=== PATIENT | female | born 1990 | race African-American/Black ===

== ENCOUNTER 2016-09-05 16:59 | Emergency (ER) | payer OTHER ==
[~2016-09-05] VITALS: Ht 157.5 cm; Wt 90.7 kg
--- NOTE | 2016-09-05 17:05 | NUR ---
PT BIBA TO BED 3 AT THIS TIME.
[2016-09-05 17:07] VITALS: BP 159/97
--- NOTE | 2016-09-05 17:44 | NUR ---
25 YO FEMALE BIB EMS FROM FIELD FOR LEFT ARM PAIN, TO BED SHORTLY AFTER BEING SEN BY PATIENT ELOPED OUT BACK DOOR.
== END 2016-09-05 17:44 | disposition left against medical advice (07) ==
LOC: MED 16:59
DX: L02.414 Cutaneous abscess of left upper limb (principal)
CPT/HCPCS: 99283

== ENCOUNTER 2018-01-06 01:54 | Inpatient (IN) | payer MEDICAID, OTHER ==
[~2018-01-06] VITALS: Ht 162.6 cm; Wt 72.6 kg
[2018-01-06 01:54] VITALS: BP 106/62
--- NOTE | 2018-01-06 01:54 | NUR ---
PT CHALINO ALS. TAKEN TO BED 5
--- NOTE | 2018-01-06 01:55 | NUR ---
PT REMOVED ALL CLOTHES AND PLACED IN HOSPITAL GOWN. CLOTHES AND PERSONAL BELONGINGS HANDED OVER TO SECURITY FOR SAFEKEEPING. ALL BEDSIDE EQUIPMENT REMOVED AND SITTER PLACED IN ROOM FOR MONITORING.
--- NOTE | 2018-01-06 01:55 | NUR ---
Dr. Salvador evaluating patient at bedside.
--- NOTE | 2018-01-06 01:55 | NUR ---
27/ BIBA FOR 5150 HOLD PLACED BY [facility]. PER EMS PT WAS CAUSING PUBILC DISTURBANCE IN AN APARTMENT COMMUNITY AND STATES " SHE WILL KILL HERSELF AND EVERYONE IN THE APARTMENT COMPLEX". PT IS UNCOOPERATIVE. UNABLE TO OBTAIN MEDICAL HISTORY. BELONGINGS SENT TO SECURITY. SITTER AT BEDSIDE
--- NOTE | 2018-01-06 02:15 | NUR ---
PT EXTREMELY AGITATED, CURSING AND YELLING AT STAFF. PT PLACED ON 4PT RESTRAINTS PER MD ORDERS.
[2018-01-06] MEDS ORDERED: diphenhydrAMINE 50 MG/ML VIAL IM ONE (02:20)
[2018-01-06] MEDS ORDERED: HALOPERIDOL IM 5 MG/ML VIAL IM ONE (02:20)
[2018-01-06] MEDS ORDERED: LORazepam 2 MG/ML VIAL IM ONE (02:20)
[2018-01-06] MEDS ORDERED: diphenhydrAMINE 50 MG/ML VIAL ONE (02:23)
[2018-01-06] MEDS ORDERED: HALOPERIDOL IM 5 MG/ML VIAL ONE (02:23)
[2018-01-06] MEDS ORDERED: LORazepam 2 MG/ML VIAL ONE (02:24)
--- NOTE | 2018-01-06 02:43 | NUR ---
# 14 FR Urinary catheter inserted utilizing sterile technique. Immediate return of 15CC ml YELLOW urine noted. Urine sample collected and sent to lab.
[2018-01-06 02:44] LABS: ALBUMIN 4.2 g/dL (3.4-5.0); ASPARTATE AMINOTRANSFERASE 33 U/L (15-37); CHLORIDE 106 mmol/L (98-107); CREATININE 1.3 mg/dL (0.6-1.3); GFR ARICAN-AMERICAN 63 mL/min (>90); GLUCOSE 84 mg/dL (74-106); SODIUM SERUM 144 mmol/L (136-145); TOTAL BILIRUBIN 0.4 mg/dL (0.0-1.0)
[2018-01-06 02:45] LABS: ACETAMINOPHEN < 0.5 ug/ml (10-30); SALICYLATE < 2.8 mg/dL (2.8-20.0)
--- NOTE | 2018-01-06 02:46 | NUR ---
DURING STRAIGHT CATH, PLASTIC BAG WAS PULLED OUT VAGINAL AREA, PLASTIC BAG APPEARS TO HAVE DIRT AND STOOLS NOTED.
--- NOTE | 2018-01-06 02:50 | NUR ---
PT ASLEEP. RESTRAINTS DC. SKIN IS INTACT, WNL
[2018-01-06 02:51] LABS: APPEARANCE,URINE CLEAR (CLEAR); BILIRUBIN,URINE NEGATIVE (NEGATIVE); BLOOD, URINE NEGATIVE (NEGATIVE); COLOR,URINE YELLOW (YELLOW); LEUKOCYTE ESTERASE ,URINE NEGATIVE (NEGATIVE); NITRITE, URINE NEGATIVE (NEGATIVE); UGLUCOSE NEGATIVE (NEGATIVE)
[2018-01-06 02:57] LABS: UREA NITROGEN, BLOOD 10 mg/dL (7-18)
[2018-01-06 03:01] LABS: RBC,URINE 0-5 (RARE) /HPF (0-5)
[2018-01-06 03:03] LABS: BARBITURATE, URINE NEG. ng/ml (NEG <=200); BENZODIAZEPINE, URINE NEG. ng/mL (NEG <=200); CANNABINOID, URINE NEG. ng/mL (NEG <=50); COCAINE, URINE NEG. ng/mL (NEG <=300); OPIATE, URINE NEG. ng/mL (NEG <=2000); PHENCYCLIDINE SCREEN,URINE NEG. ng/mL (NEG <=25)
--- NOTE | 2018-01-06 03:13 | NUR ---
PT TAKEN TO CT
--- NOTE | 2018-01-06 03:29 | NUR ---
PT RETURN FROM CT
--- NOTE | 2018-01-06 03:30 | NUR ---
Patient appears to be resting comfortably in bed.Respirations even and unlabored.
[2018-01-06 03:50] LABS: BASOPHILS % (AUTO) 0.6 % (0.0-2.0); EOSINOPHILS # (AUTO) 0.2 K/uL (0-0.4); EOSINOPHILS % (AUTO) 2.4 % (0.0-4.0); HEMATOCRIT 39.9 % (36-48); HEMOGLOBIN 12.8 g/dL (12.0-16.0); LYMPHOCYTES # (AUTO) 2.7 K/uL (2.5-16.5); MEAN CORPUSCULAR HEMOGLOBIN 26 pg (27-31); MEAN CORPUSCULAR HGB CONC 32 g/dL (33-37); MEAN CORPUSCULAR VOLUME 80.5 fL (80-94); MONOCYTES # (AUTO) 0.8 K/uL (0.8-1.0); MONOCYTES % (AUTO) 9.2 % (1.7-9.3); NEUTROPHILS % (AUTO) 56.8 % (42.2-75.2); PLATELET COUNT (AUTO) 245 K/uL (140-450); RED BLOOD CELL COUNT(AUTO) 4.95 MIL/uL (4.20-5.40); RED CELL DISTRIBUTION WIDTH 13.5 % (11.6-13.7)
[2018-01-06 03:51] LABS: WHITE BLOOD COUNT (AUTO) 8.8 K/uL (4.8-10.8)
--- NOTE | 2018-01-06 04:46 | NUR ---
Called following facilities: [facility], spoke with Robert, no beds available at [facility], [facility], [facility]. ([phone]) [facility] and spoke with Nirmala. Nirmala states that they have 19 patients on the waiting list pending and have no bed available. ([phone]) [facility] and spoke with Timothy. Timothy asked me to fax patient packet. Packet was faxed to [phone], Timothy is to call either [facility] or [facility] if they do have a bed available. ([phone]) [facility] spoke with Duncan, no beds available. ([phone]) [facility] and spoke with Isha, no beds available. ([phone])
--- NOTE | 2018-01-06 05:10 | NUR ---
Patient appears to be resting comfortably in bed.Respirations even and unlabored.
[2018-01-06] MEDS ORDERED: ACETAMINOPHEN 325 MG TAB PO PRN (05:25)
[2018-01-06] MEDS ORDERED: ONDANSETRON 4 MG/2 ML VIAL IVP PRN (05:25)
--- NOTE | 2018-01-06 05:48 | NUR ---
Patient will be admitted to care of [facility]. Admited to MS. Will go to room 110B. Belongings list completed. Report to OSCAR DELGADILLO.
--- NOTE | 2018-01-06 05:58 | NUR ---
RECEIVED PT FROM ER VIA [facility]. PT SLEEPING. DX: 5150 HOLD SUICIDAL IDEATION. 1:1 SITTER . NO S/S OF RESP DISTRESS. ON ROOM AIR. NO S/S OF PAIN. SAFETY PRECAUTION IN PLACE.
[2018-01-06 06:00] VITALS: BP 94/55
--- NOTE | 2018-01-06 07:15 | NUR ---
ENDORSED PT TO DAY SHIFT NURSE. PT IN STABLE CONDITION.
--- NOTE | 2018-01-06 07:20 | NUR ---
RECEIVED PT FROM CONTRACTS MANAGER RN. PT IN BED, HARD TO WAKE UP, DROWSY, OX1. NOT ANSWERING ANY QUESTIONS. NO SOB NOTED, BREATHING EVEN AND UNLABORED. NO C/O PAIN. NO EDEMA NOTED. SKIN INTACT. VITALS TAKEN, WITHIN NORMAL LIMIT. 1:1 SITTER. BED IN LOWEST POSITION, BRAKE ON, SIDE RAILS UP, CALL LIGHT WITHIN REACH, WILL CONTINUE TO MONITOR AND DO ADMISSION PAPERWORK WHEN PT IS MORE AWAKE.
[2018-01-06 08:00] VITALS: BP 111/75
[2018-01-06] MEDS: NACL 0.9% 1,000 ML IV SCH (08:00)
[2018-01-06] MEDS: OLANZapine 2.5 MG TAB PO SCH ×2 (08:49→21:00)
--- NOTE | 2018-01-06 09:36 | NUR ---
PATIENT HAS BEEN SCREENED AND CATEGORIZED LOW NUTRITION RISK. PATIENT WILL BE SEEN WITHIN 7 DAYS OF ADMISSION. 01/12/[address] Addendum: 01/08/18 at [address] PATIENT HAS BEEN RESCREENED AND RECATEGORIZED MODERATE NUTRITION RISK D/T EDINSON SCORE OF 17. PATIENT WILL BE SEEN AND ASSESSED WITHIN 3-5 DAYS OF ADMISSION 01/08/18 - 01/10/[address]
--- NOTE | 2018-01-06 09:36 | NUR ---
PT REFUSED IV INSERT AT THIS TIME. WILL TRY LATER.
[2018-01-06 10:09] LABS: PROTHROMBIN TIME 10.9 secs (10.8-13.4)
[2018-01-06 10:11] LABS: MAGNESIUM 2.2 mg/dL (1.8-2.4); PHOSPHORUS 3.4 mg/dL (2.5-4.9)
[2018-01-06 10:14] LABS: THYROID STIMULATING HORMONE 1.76 uIU/mL (0.34-3.74)
--- NOTE | 2018-01-06 10:43 | NUR ---
[facility] aware patient is still in unit. will continue to look for placement throughout shift. will update unit when new information has been received.
--- NOTE | 2018-01-06 11:20 | NUR ---
PT WAS CLEANED. WOKE UP PT TO EAT, PT ATE WELL. PT REFUSED IV INSERT. RISK AND BENEFIT EXPLAINED. STILL REFUSING. Addendum: 01/06/18 at 1218 by [facility] RN LINENS CHANGED, GOWN AND SOCKS CHANGED.
--- NOTE | 2018-01-06 13:10 | NUR ---
HELPED SEMIAUTOMATIC TAPER OPERATOR TO SIT PT UP IN BED FOR CHEST X RAY. PT IS STILL DROWSY.
[2018-01-06 13:39] LABS: FREE T4 (FREE THYROXINE) 1.28 ng/dL (0.76-1.46)
[2018-01-06 14:30] LABS: CHOL/HDL RATIO 2.1 (1-4.5)
--- NOTE | 2018-01-06 15:05 | NUR ---
WOKE PT UP FOR LUNCH. PT ATE WELL. WENT BACK TO SLEEP RIGHT AFTER. NO S/S OF RESPIRATORY DISTRESS. PT MUMBLING TO QUESTIONS REGARDING MEDICAL HX.
[2018-01-06 16:01] VITALS: BP 95/59
--- NOTE | 2018-01-06 18:15 | NUR ---
No update from contacted facilities at this time. no bed placement in surrounding LPS designated facilities at this time. will endorse to mold shifter to continue looking for placement.
--- NOTE | 2018-01-06 19:22 | NUR ---
ENDORSED PT TO LANGUAGE ARTS TEACHER NURSE NURSE. PT IS IN STABLE CONDITION. 1:1 SITTER.
--- NOTE | 2018-01-06 19:23 | NUR ---
RECD. RESTING IN BED SLEEPING, VERY DROWSY. WAKEN UP BUT JUST MOVE BODY IN RESPONSE. RESPIRATION EVEN AND UNLABORED. NO IV LINE. INTRODUCED SELF AND PLAN OF CARE GIVEN BUT JUST KEEP ON SLEEPING. SAFETY MEASURES ENFORCED. WILL CONTINUED TO MONITOR BEHAVIOR AND ENSURE SAFETY. NO APPEARANCE OF PAIN NOTED 0/10.
[2018-01-06] MEDS ORDERED: LORazepam 1 MG TAB PO PRN (21:05)
--- NOTE | 2018-01-06 21:15 | NUR ---
WAKEN UP TO TAKE ZYPREXA BUT SHAKES HER BUTTOCKS AND CONTINUED SLEEPING ON HER ABDOMEN. STILL DROWSY.
--- NOTE | 2018-01-06 22:05 | NUR ---
DR. SINGH CAME TO ASSESS PATIENT. DID NOT WAKE UP JUST CHANGED POSITION IN BED, STILL DROWSY. WILL COMEBACK WHEN PATIENT IS READY TO COMMUNICATE, STILL ON 5150 HOLD.
[2018-01-07] VITALS: BP 105/63
--- NOTE | 2018-01-07 | NUR ---
STILL SLEEPING COMFORTABLY IN BED.
[2018-01-07] MEDS: NACL 0.9% 1,000 ML IV SCH ×2 (00:40→17:20)
--- NOTE | 2018-01-07 04:00 | NUR ---
CHANGES POSITION IN BED, CONTINUED SLEEPING.
--- NOTE | 2018-01-07 06:00 | NUR ---
WET THE BED BUT REFUSED TO BE MOVED TO CHANGE BEDDINGS.
--- NOTE | 2018-01-07 06:40 | NUR ---
STILL SLEEPING IN BED. VERY DROWSY, UNCOOPERATIVE. CONDITION REMAIN STABLE. SAFETY MAINTAINED. WILL ENDORSE TO AM NURSE FOR CONTINUITY OF CARE.
--- NOTE | 2018-01-07 07:05 | NUR ---
ENDORSED TO AM NURSE FOR CONTINUITY OF CARE.
--- NOTE | 2018-01-07 07:30 | NUR ---
RECEIVED PT FROM FORM DESIGNER NURSE. PT SLEEPING IN BED, HARD TO WAKE UP, STILL DROWSY, OX2 TO NAME AND PLACE. NO SOB NOTED, BREATHING EVEN AND UNLABORED. DENIES PAIN. DENIES SUICIDAL IDEATION, DENIES THOUGHTS OF HURTING OTHERS. ORIENTED PT TO THE ROOM. VITALS TAKEN, WITHIN NORMAL LIMIT. 1:1 SITTER. BED IN LOWEST POSITION, BRAKE ON, SIDE RAILS UP, WILL CONTINUE TO MONITOR.
[2018-01-07 08:00] VITALS: BP 95/53
[2018-01-07] MEDS: OLANZapine 2.5 MG TAB PO SCH ×2 (08:52→21:10)
--- NOTE | 2018-01-07 12:13 | NUR ---
No Bed availability at following facilities: [facility] s[facility]w [facility] s[facility]w [facility] s[facility]w Nivia Goodson s/w Nivia, faxed over packet for review.
--- NOTE | 2018-01-07 13:15 | NUR ---
PT ATE WELL. PT DENIES SUICIDE IDEATION. PT STATED SHE WANTS TO GO HOME. EXPLAINED TO HER THAT IF PSYCHOLOGIST CLEARS HER, SHE MAY BE DISCHARGED. MADE PT AWARE THAT THE PSYCHOLOGIST WILL COME AGAIN TONIGHT OR TOMORROW.
[2018-01-07 16:00] VITALS: BP 94/62
--- NOTE | 2018-01-07 17:20 | NUR ---
PT CRIED AND STATED SHE WANTS TO GO HOME. EXPLAINED TO HER THAT PSYCHOLOGIST HAS TO CLEAR HER. PSYCHOLOGIST CAME LAST NIGHT, HOWEVER, SHE WAS DROWSY TO BE EVALUATED. TOLD HER THAT THE PSYCHOLOGIST WILL BE BACK TONIGHT OR TOMORROW. ASKED PT IF SHE CAN TAKE THE ATIVAN (1MG PO) FOR HER ANXIETY, PT REFUSED. PT IS NOW QUIETLY SLEEPING IN HER BED AGAIN.
--- NOTE | 2018-01-07 19:13 | NUR ---
ENDORSED PT TO MILLER HEAD ASSISTANT WET PROCESS NURSE NURSE. PT IS IN STABLE CONDITION. 1:1 SITTER.
--- NOTE | 2018-01-07 19:15 | NUR ---
RECD. RESTING IN BED LYING ON HER ABDOMEN. EASILY WAKES UP WHEN TALKED TO BUT DOES EVEN TURNED TO LOOK AT NURSE, WHEN ASKED IF SHE HAS STILL THOUGHTS OF HURTING HERSELF, STATED NO. WHEN ASKED FURTHER QUESTIONS TO ASSESS LEVEL OF ORIENTATION, DID NOT ANSWER. SAFETY MEASURES ENFORCED. PLAN OF CARE FOR THE SHIFT DISCUSSED. DID NOT RESPOND IF SHE UNDERSTAND. NO APPEARANCE OF PAIN NOTED 0/10. WILL CONTINUE TO MONITOR BEHAVIOR AND ENSURE SAFETY DURING SHIFT.
--- NOTE | 2018-01-07 19:16 | NUR ---
Patient's Plan of Care was discussed and reviewed with KLEVER: SUZANNA
--- NOTE | 2018-01-07 21:00 | NUR ---
WHEN ASKED IF SHE WANTS TO TAKE HER MEDICATION STATED YES. INFORMED THAT PSYCHOLOGIST WILL BE REQUESTED TO COME BACK TOMORROW AND SHE SHOULD ANSWER ALL QUESTIONS IF SHE WANTS TO GO HOME. DID NOT SAY ANYTHING.
--- NOTE | 2018-01-07 21:10 | NUR ---
DUE PO MEDICATION FOR THE NIGHT GIVEN, COOPERATIVE.
--- NOTE | 2018-01-07 23:58 | NUR ---
WITH ANXIETY, MEDICATED WITH ATIVAN 1 MG PO.
[2018-01-08 00:43] VITALS: BP 105/67
--- NOTE | 2018-01-08 01:00 | NUR ---
NO ANXIETY, SLEEPING COMFORTABLY IN BED.
--- NOTE | 2018-01-08 05:00 | NUR ---
WAKEN UP TO PUT ON GOWN BUT REFUSED TO MOVED. UNDERWEAR CHANGED. STILL SLEEPING ON HER ABDOMEN. NO SUICIDAL BEHAVIOR NOTED. SLEEPS MOST OF THE TIME DURING SHIFT.
--- NOTE | 2018-01-08 07:05 | NUR ---
ENDORSED TO AM NURSE FOR CONTINUITY OF CARE.
--- NOTE | 2018-01-08 07:06 | NUR ---
Patient's Plan of Care was discussed and reviewed with SOLAR HOT WATER INSTALLER: MIKHAIL BLEVINS
--- NOTE | 2018-01-08 07:26 | NUR ---
DR. RANGEL [facility], RESIDENTS , AND CHARGE NURSE KAYLENE MATHIS -ELIE CAME FOR PT. AM ROUNDS, PT. NON-COOPERATIVE AND CONTINUE SLEEPING.
--- NOTE | 2018-01-08 07:40 | NUR ---
SERVED BREAKFAST TRAY, PT. REFUSED TO EAT AT THIS TIME AND CONTINUE TO SLEEP.
--- NOTE | 2018-01-08 08:01 | NUR ---
STARTED TO EAT AT THIS TIME WHILE LYING IN BED. PT. NON-COOPERATIVE. DID NOT WANT TO EAT AT BEDSIDE TABLE. REFUSED VS CHECK AND REFUSED TO WEAR HOSPITAL GOWN.
[2018-01-08] MEDS: OLANZapine 2.5 MG TAB PO SCH (08:48)
--- NOTE | 2018-01-08 09:24 | NUR ---
WENT TO BATHROOM WITHOUT ASSISTANCE. HAD STEADY GAIT AND BALANCE. TOLERATED WELL. STILL NON-COOPERATIVE. REFUSED TO WEAR HOSPITAL GOWN, REFUSED SCHEDULED MEDICINE -ZYPREXA 2.5 MG PO, REFUSED VS CHECK, OFFERED BED BATH TO BE DONE BY TELECOMMUNICATION EQUIPMENT REPAIRER OR GIVE FACE TOWEL AND SKIN WIPES TO CLEAN HERSELF PT. REFUSED. ALSO REFUSED TO CHANGE BED LINENS. CONTINUE TO MONITOR 1:1 FOR SUICIDAL PREVENTION.
[2018-01-08] MEDS: NACL 0.9% 1,000 ML IV SCH (10:00)
--- NOTE | 2018-01-08 12:00 | NUR ---
STILL NON-COOPERATIVE AT THIS TIME. REFUSED VS CHECK. NO ACUTE DISTRESS NOTED. CONTINUE MONITORING 1:1
--- NOTE | 2018-01-08 12:59 | NUR ---
There are no beds available at contacted/faxed facilities. Will continue to follow up.
--- NOTE | 2018-01-08 13:35 | NUR ---
ROSARIO ALCANTAR CAME AND SPOKE TO. AT BEDSIDE FOR PT. PSYCH EVAL. PT. CALM AND COOPERATIVE.
--- NOTE | 2018-01-08 13:45 | NUR ---
PER ROSARIO ALCANTAR, PT. WAS CLEARED FOR PSYCH EVAL. INFORMED CHARGE NURSE KAYLENE CANO AND ALSO INFORMED NIKKI ALCANTAR THAT PT. WAS CLEARED BY ROSARIO ALCANTAR.
--- NOTE | 2018-01-08 14:48 | NUR ---
NIKKI ALCANTAR CAME AND SPOKE TO PT. REGARDING PT. D/C INSTRUCTIONS TEACHING, MD FOLLOW UP, AND DISEASE MANAGEMENT TEACHING. PT. CALM, QUIET AND COOPERATIVE.
--- NOTE | 2018-01-08 15:00 | NUR ---
EXPLAINED TO PT. ABOUT MD D/C ORDER, D/C INSTRUCTIONS AND TEACHING, MD FOLLOW UP, DISEASE MANAGEMENT TEACHING, COUNSELLING/MENTAL HEALTH/PSYCHIATRIC PROGRAMS AND HOMELESS COMMUNITY RESOURCES PACKET. VERBALIZED UNDERSTANDING.
--- NOTE | 2018-01-08 15:25 | NUR ---
D/C HOME VIA WHEELCHAIR. AWAKE, ALERT, AND ORIENTED X3. SPEECH CLEAR. NO C/O PAIN. NO SOB, NOTED. IN STABLE CONDITION. SUMA PASS PROVIDED. INFORMED CHARGE NURSE KAYLENE CANO.
== END 2018-01-08 15:25 | disposition home or self-care (01) | DRG 812 ==
LOC: MED 01:54 → MTU 05:21
PROVIDERS: ADMIT General Practice; ATTEND General Practice
DX: T43.621A Poisoning by amphetamines, accidental (unintentional), initial encounter (principal); N17.0 Acute kidney failure with tubular necrosis; G92 Toxic encephalopathy; F19.129 Other psychoactive substance abuse with intoxication, unspecified; F23 Brief psychotic disorder; F31.9 Bipolar disorder, unspecified; F17.210 Nicotine dependence, cigarettes, uncomplicated; Z78.1 Physical restraint status; Z59.0 Homelessness; Y92.89 Other specified places as the place of occurrence of the external cause; Z91.19 Patient's noncompliance with other medical treatment and regimen
CPT/HCPCS: 36415; 70450; 71045; 80053; 80305; 81001; 81025; 82150; 83036; 83605; 83690; 83735; 83880; 84100; 84439; 84443; 84484; 85025; 85610; 85730; 87081; 87086; 96372; 99285; C1758; G0480; G0482; J1200; J1630; J2060; Q0092

== ENCOUNTER 2018-03-27 05:25 | Emergency (ER) | payer SELFPAY ==
--- NOTE | 2018-03-27 05:28 | NUR ---
PT CHALINO WEIRS
--- NOTE | 2018-03-27 05:40 | NUR ---
PT REFUSED TRIAGE. IN LOBBY. ER AWARE.
--- NOTE | 2018-03-27 05:41 | NUR ---
PATIENT LEFT WITHOUT BEING SEEN BY DR. SANCHEZ. NO FURTHER CARE PROVIDED FOR PATIENT.
== END 2018-03-27 05:40 | disposition left against medical advice (07) ==
LOC: MED 05:25
DX: Z53.21 Procedure and treatment not carried out due to patient leaving prior to being seen by health care provider (principal)

== ENCOUNTER 2018-04-08 06:19 | Emergency (ER) | payer OTHER ==
[~2018-04-08] VITALS: Ht 167.6 cm; Wt 63.5 kg
[2018-04-08 06:21] VITALS: BP 100/70
[2018-04-08 07:24] LABS: BASOPHILS # (AUTO) 0.1 K/uL (0.00-0.22); BASOPHILS % (AUTO) 0.8 % (0.0-2.0); EOSINOPHILS # (AUTO) 0.2 K/uL (0-0.4); EOSINOPHILS % (AUTO) 1.7 % (0.0-4.0); HEMATOCRIT 33.1 % (36-48); HEMOGLOBIN 10.8 g/dL (12.0-16.0); LYMPHOCYTES # (AUTO) 1.8 K/uL (2.5-16.5); LYMPHOCYTES % (AUTO) 18.9 % (20.5-51.1); MEAN CORPUSCULAR HEMOGLOBIN 26 pg (27-31); MEAN CORPUSCULAR HGB CONC 33 g/dL (33-37); MONOCYTES # (AUTO) 0.8 K/uL (0.8-1.0); MONOCYTES % (AUTO) 7.9 % (1.7-9.3); NEUTROPHILS # (AUTO) 6.9 K/uL (1.8-7.7); NEUTROPHILS % (AUTO) 70.7 % (42.2-75.2); PLATELET COUNT (AUTO) 236 K/uL (140-450); RED BLOOD CELL COUNT(AUTO) 4.19 MIL/uL (4.20-5.40); RED CELL DISTRIBUTION WIDTH 15.3 % (11.6-13.7); WHITE BLOOD COUNT (AUTO) 9.7 K/uL (4.8-10.8)
[2018-04-08 07:27] LABS: ANION GAP 12.5 (8-16); CARBON DIOXIDE 28.6 mmol/L (21-32); CHLORIDE 103 mmol/L (98-107); GFR ARICAN-AMERICAN 85 mL/min (>90); GLUCOSE 90 mg/dL (74-106); POTASSIUM 4.1 mmol/L (3.5-5.1); SODIUM SERUM 140 mmol/L (136-145); UREA NITROGEN, BLOOD 14 mg/dL (7-18)
[2018-04-08 07:33] LABS: ACETAMINOPHEN < 0.5 ug/ml (10-30); ALBUMIN 3.6 g/dL (3.4-5.0); ASPARTATE AMINOTRANSFERASE 28 U/L (15-37); SALICYLATE 5.9 mg/dL (2.8-20.0); TOTAL BILIRUBIN 0.3 mg/dL (0.0-1.0)
[2018-04-08] MEDS: LORazepam 2 MG/ML VIAL IM ONE (07:42)
[2018-04-08 09:06] LABS: BARBITURATE, URINE NEG. ng/ml (NEG <=200); BENZODIAZEPINE, URINE NEG. ng/mL (NEG <=200); CANNABINOID, URINE NEG. ng/mL (NEG <=50); COCAINE, URINE NEG. ng/mL (NEG <=300); OPIATE, URINE POS. ng/mL (NEG <=2000); PHENCYCLIDINE SCREEN,URINE NEG. ng/mL (NEG <=25)
[2018-04-08 14:38] VITALS: BP 103/71
== END 2018-04-08 14:39 | disposition home or self-care (01) ==
LOC: MED 06:19 → EDBD 06:19 → MED 14:39
DX: F25.9 Schizoaffective disorder, unspecified (principal); F15.10 Other stimulant abuse, uncomplicated; F11.10 Opioid abuse, uncomplicated; Z59.0 Homelessness
CPT/HCPCS: 36415; 80053; 80305; 81025; 84484; 85025; 93005; 96372; 99285; C1758; G0480; G0482; J2060

== ENCOUNTER 2019-12-10 05:25 | Emergency (ER) | payer MEDICAID, OTHER ==
[~2019-12-10] VITALS: Ht 165.1 cm; Wt 54.4 kg
[2019-12-10 05:27] VITALS: BP 123/81
--- NOTE | 2019-12-10 05:30 | NUR ---
PT BIBA TO ER BED 12
--- NOTE | 2019-12-10 05:34 | NUR ---
PT AMBULATED TO NURSING DESK REQUESTING BLANKET AND FOOD. GAIT STEADY AND SPEECH COMPREHENSIBLE.
--- NOTE | 2019-12-10 05:38 | NUR ---
29 Y/O FEMALE BIB BLS FROM [facility]. PT WAS RIDING AROUND ON A SCOOTER, HARRASSING OTHER PATRONS, AND ASKED TO LEAVE. POLICE WERE CALLED, FOUND METH ON PT, AND HAD HER BROUGHT INTO ER. FOR ALOC. PT IS A& O X 3. KEEPS REQUESTING A BLANKET, AND FOOD. 0/10 PAIN VERBALIZED. VOMITINING X 2 HRS AGO. BS 120. DENIES NAUSEA, DIARRHEA. VSS, R/R EQUAL, AND UNLABORED. SIDE RAIL X1, BED IN LOW POSITION, WILL CONTINUE TO MONITOR. ALLERGY: HALOPERIDOL, RISPERIDONE PMH: ASTHMA
[2019-12-10] MEDS ORDERED: diphenhydrAMINE 50 MG/ML VIAL IM ONE (05:40)
[2019-12-10] MEDS ORDERED: LORazepam 2 MG/ML VIAL IM ONE (05:40)
[2019-12-10] MEDS ORDERED: HALOPERIDOL IM 5 MG/ML VIAL IM ONE (05:40)
--- NOTE | 2019-12-10 05:54 | NUR ---
PT REFUSED HALDOL, AND ATIVAN, DUE TO ALLERGY, REACTION IS LOCK JAW. SHE STATED SHE IS ALLERGIC TO RISPERIDAL WELL.
--- NOTE | 2019-12-10 07:19 | NUR ---
REPORT RECEIVED FROM ARLEN. PT IS RESTING IN BED, AWAKENS TO VERBAL STIMULI. VISIBLE CHEST RISE AND FALL. BED IN LOWEST POSITION. X2 SIDE RAILS RAISED.
[2019-12-10 07:56] VITALS: BP 131/78
--- NOTE | 2019-12-10 07:56 | NUR ---
Patient discharged with v/s stable. Written and verbal after care instructions given and explained. Patient verbalized understanding. Ambulatory with steady gait. All questions addressed prior to discharge. Advised to follow up with PMD.
== END 2019-12-10 07:56 | disposition home or self-care (01) ==
LOC: MED 05:25
DX: R40.4 Transient alteration of awareness (principal); F10.129 Alcohol abuse with intoxication, unspecified; F15.129 Other stimulant abuse with intoxication, unspecified; J45.909 Unspecified asthma, uncomplicated; Z88.5 Allergy status to narcotic agent; Z88.8 Allergy status to other drugs, medicaments and biological substances
CPT/HCPCS: 96372; 99283; J1200; J1630; J2060

== ENCOUNTER 2020-01-04 08:28 | Emergency (ER) | payer MEDICAID ==
[~2020-01-04] VITALS: Ht 154.9 cm; Wt 76.2 kg
[2020-01-04 08:28] VITALS: BP 118/78
[2020-01-04] MEDS ORDERED: NACL 0.9% 1,000 ML IV ONE (08:30)
[2020-01-04 09:36] LABS: BASOPHILS % (AUTO) 0.2 % (0.0-2.0); EOSINOPHILS % (AUTO) 0.2 % (0.0-4.0); HEMATOCRIT 36.1 % (36-48); HEMOGLOBIN 11.4 g/dL (12.0-16.0); LYMPHOCYTES % (AUTO) 11.8 % (20.5-51.1); MEAN CORPUSCULAR HEMOGLOBIN 26 pg (27-31); MEAN CORPUSCULAR HGB CONC 32 g/dL (33-37); MEAN CORPUSCULAR VOLUME 80.8 fL (80-94); MONOCYTES # (AUTO) 0.6 K/uL (0.8-1.0); MONOCYTES % (AUTO) 7.1 % (1.7-9.3); NEUTROPHILS # (AUTO) 7.2 K/uL (1.8-7.7); NEUTROPHILS % (AUTO) 80.7 % (42.2-75.2); PLATELET COUNT (AUTO) 229 K/uL (140-450); RED BLOOD CELL COUNT(AUTO) 4.46 MIL/uL (4.20-5.40); RED CELL DISTRIBUTION WIDTH 14.6 % (11.6-13.7); WHITE BLOOD COUNT (AUTO) 8.9 K/uL (4.8-10.8)
[2020-01-04 10:04] LABS: ALBUMIN 3.6 g/dL (3.4-5.0); ANION GAP 12.2 (8-16); ASPARTATE AMINOTRANSFERASE 23 U/L (15-37); CARBON DIOXIDE 27.2 mmol/L (21-32); CHLORIDE 104 mmol/L (98-107); CREATININE 1.1 mg/dL (0.6-1.3); GFR ARICAN-AMERICAN 75 mL/min (>90); GLUCOSE 116 mg/dL (74-106); POTASSIUM 3.4 mmol/L (3.5-5.1); SODIUM SERUM 140 mmol/L (136-145); TOTAL BILIRUBIN 0.2 mg/dL (0.0-1.0); UREA NITROGEN, BLOOD 13 mg/dL (7-18)
[2020-01-04 10:05] LABS: ACETAMINOPHEN < 0.5 ug/ml (10-30)
[2020-01-04 10:28] LABS: BARBITURATE, URINE NEGATIVE ng/ml (NEG <=200); BENZODIAZEPINE, URINE NEGATIVE ng/mL (NEG <=200); CANNABINOID, URINE NEGATIVE ng/mL (NEG <=50); COCAINE, URINE NEGATIVE ng/mL (NEG <=300); OPIATE, URINE NEGATIVE ng/mL (NEG <=2000); PHENCYCLIDINE SCREEN,URINE NEGATIVE ng/mL (NEG <=25)
[2020-01-04 11:13] VITALS: BP 110/78
== END 2020-01-04 11:13 | disposition home or self-care (01) ==
LOC: MED 08:28
DX: F19.10 Other psychoactive substance abuse, uncomplicated (principal); F20.9 Schizophrenia, unspecified; Z59.0 Homelessness
CPT/HCPCS: 36415; 71045; 80053; 80305; 84702; 85025; 96360; 99284; G0480; G0482; Q0092

== ENCOUNTER 2020-01-04 12:24 | Emergency (ER) | payer MEDICAID ==
[~2020-01-04] VITALS: Ht 167.6 cm; Wt 104.3 kg
[2020-01-04 12:24] VITALS: BP 133/67
== END 2020-01-04 12:31 | disposition left against medical advice (07) ==
LOC: MED 12:24
DX: F20.9 Schizophrenia, unspecified (principal); R45.1 Restlessness and agitation; R41.82 Altered mental status, unspecified
CPT/HCPCS: 99283

== ENCOUNTER 2020-01-16 11:07 | Emergency (ER) | payer MEDICAID ==
--- NOTE | 2020-01-16 11:10 | NUR ---
PATIENT LEFT WITHOUT BEING SEEN BY DR. Kaur. NO FURTHER CARE PROVIDED FOR PATIENT.
== END 2020-01-16 11:10 | disposition left against medical advice (07) ==
LOC: MED 11:07
DX: Z53.21 Procedure and treatment not carried out due to patient leaving prior to being seen by health care provider (principal)